=== PATIENT | male | born 1965 | race African-American/Black ===

== ENCOUNTER 2017-09-11 18:12 | Emergency (ER) | payer OTHER ==
[~2017-09-11] VITALS: Ht 182.9 cm; Wt 122.7 kg
[~2017-09-11 18:12] MED LIST: CEPHALEXIN500 M1 PO; DESYREL 100MG100 MG PO; HCTZ 25MG TAB25 MG PO; INDOCIN50 MG PO; PRINIVIL40 MG PO; TENORMIN 2525 MG/TAB PO; TOPROL XL 25MG25 MG PO; ZOCOR 40MG40 MG PO; ZYLOPRIM 100MG100 MG PO
[2017-09-11 18:15] VITALS: BP 134/82; PULSE 92; TEMP 97.6
[2017-09-11] MEDS ORDERED: NORCO 325 MG-51 TAB PO (19:12)
== END 2017-09-11 19:22 | disposition home or self-care (01) ==
LOC: COL.ER 18:12
DX: M79.675 Pain in left toe(s) (principal); I10 Essential (primary) hypertension; F41.9 Anxiety disorder, unspecified; F43.10 Post-traumatic stress disorder, unspecified; E78.00 Pure hypercholesterolemia, unspecified

== ENCOUNTER 2018-05-15 21:44 | Emergency (ER) | payer OTHER ==
[~2018-05-15] VITALS: Ht 182.9 cm; Wt 122.7 kg
[~2018-05-15 21:44] MED LIST changes: +NORCO 325 MG-51 TAB PO
[2018-05-15 21:48] VITALS: TEMP 97.8
[2018-05-15] MEDS ORDERED: CEPHALEXIN500 M1 PO (22:54)
[2018-05-15 23:05] VITALS: BP 135/104; PULSE 95
== END 2018-05-15 23:11 | disposition home or self-care (01) ==
LOC: COL.ER 21:44
DX: L60.0 Ingrowing nail (principal); I10 Essential (primary) hypertension; E78.5 Hyperlipidemia, unspecified
CPT/HCPCS: J3010

== ENCOUNTER 2021-03-21 06:13 | Emergency (ER) | payer OTHER ==
[~2021-03-21] VITALS: Ht 182.9 cm; Wt 101.4 kg
[~2021-03-21 06:13] MED LIST changes: +PRINIVIL20 MG PO; -PRINIVIL40 MG PO
[2021-03-21] MEDS ORDERED: ASPIRIN E.C. 8181 MG PO (06:40)
[2021-03-21] MEDS ORDERED: PRAVACHOL 40MG40 MG PO (06:41)
[2021-03-21 07:37] VITALS: BP 122/80; PULSE 87; TEMP 101.1
== END 2021-03-21 07:39 | disposition home or self-care (01) ==
LOC: COL.ER 06:13
DX: U07.1 COVID-19 (principal); I10 Essential (primary) hypertension; Z79.899 Other long term (current) drug therapy